=== PATIENT | male | born 1960 | race Caucasian/White ===

== ENCOUNTER 2021-05-25 05:32 | Emergency (ER) | payer OTHER ==
[2021-05-25 05:42] VITALS: BP 165/85; PULSE 111; RESP 22; TEMP 97.8
[2021-05-25] MEDS ORDERED: ONDANSETRON 4 MG/2 ML VIAL IVP STA (05:53)
[2021-05-25] MEDS ORDERED: HYDROmorphone 0.5 MG/0.5 ML SYRINGE IVP STA (05:53)
[2021-05-25 06:21] LABS: Basophils # (A) 0.1 k/uL (0-0.2); Basophils % (A) 1 %; Eosinophils # (A) 0.1 k/uL (0-0.7); Eosinophils % (A) 0 %; HCT 45.6 % (39.0-53.0); HGB 15.3 gm/dL (13.0-17.5); Lymphocytes # (A) 1.1 k/uL (1.0-4.8); Lymphocytes % (A) 10 %; MCH 30.3 pg (25.0-35.0); MCHC 33.4 g/dL (31.0-37.0); MCV 90.5 fL (80.0-100.0); Monocytes # (A) 0.4 k/uL (0-1.0); Monocytes % (A) 3 %; Neutrophils % (A) 85 %; Platelet Count 281 k/uL (150-450); RBC 5.04 m/uL (4.30-5.90); RDW 13.5 % (11.5-15.5); WBC 11.8 k/uL (3.8-10.6)
[2021-05-25 06:35] LABS: Appearance,Urine Clear (Clear); Bilirubin,Urine Negative (Negative); Blood,Urine Large (Negative); Color,Urine Yellow; Glucose,Urine (UA) Negative (Negative); Hyaline Casts,Urine 3 /lpf (0-2); Ketones,Urine 3+ (Negative); Leukocyte Esterase,Urine Negative (Negative); Mucus,Urine Occasional /hpf; Nitrite,Urine Negative (Negative); Protein,Urine Trace (Negative); RBC,Urine 14 /hpf (0-5); Specific Gravity,Urine 1.022 (1.001-1.035); Urobilinogen,Urine <2.0 mg/dL (<2.0); WBC,Urine 1 /hpf (0-5)
[2021-05-25 06:41] LABS: Albumin 4.2 g/dL (3.5-5.0); Calcium 9.3 mg/dL (8.4-10.2); Potassium 4.4 mmol/L (3.5-5.1); Total Bilirubin 0.6 mg/dL (0.2-1.3); Total Protein 7.5 g/dL (6.3-8.2)
[2021-05-25] MEDS ORDERED: HYDROmorphone 1 MG/ML 1 ML SYRINGE IVP STA (07:11)
--- NOTE | 2021-05-25 07:21 | ED ---
Abdominal Pain HPI - General Source: patient Mode of arrival: ambulatory Limitations: no limitations - History of Present Illness MD Complaint: flank pain Onset/Timin -: hour(s) Location: R flank Radiation: RLQ Migration to: no migration Severity: severe Quality: sharp Consistency: constant Improves With: nothing Worsens With: nothing Associated Symptoms: nausea, vomiting <Best Herndon - Last Filed: 05/25/21 07:23> <Vikas Fonseca - Last Filed: 05/26/21 14:48> - General Chief Complaint: Abdominal Pain Stated Complaint: poss kidney stone Time Seen by Provider: 05/25/21 05:48 - History of Present Illness Initial Comments: This patient is a 60-year-old man who presents with pain that he states is very similar to when he had previous kidney stone. Patient states that he started having some discomfort while he was trying to go to bed around 9 PM. He indicates the right flank. The pain does radiate toward the right groin. Some hours later he noted intensification and there was nausea and vomiting. When the pain did not improve he presented here for evaluation. (Best Herndon) - Related Data Home Medications Medication Instructions Recorded Confirmed Atorvastatin [Lipitor] 10 mg PO DAILY 05/25/21 05/25/21 Ibuprofen [Motrin] 800 mg PO BID PRN 05/25/21 05/25/21 Metoprolol Succinate (ER) [Toprol 50 mg PO DAILY 05/25/21 05/25/21 Xl] Multivit-Min/FA/Lycopen/Lutein 1 tab PO HS 05/25/21 05/25/21 [Centrum Silver Men Tablet] Sleep Aid Otc 25mg 25 mg PO HS 05/25/21 05/25/21 amLODIPine [Norvasc] 10 mg PO HS 05/25/21 05/25/21 Previous Rx's Medication Instructions Recorded HYDROcodone/APAP 5-325MG [[place] 1 tab PO Q4HR PRN 3 Days #18 tab 05/25/21 5-325] Ondansetron Odt [Zofran ODT] 4 mg PO Q8HR PRN #10 tab 05/25/21 Tamsulosin [Flomax] 0.4 mg PO DAILY #14 cap 05/25/21 Allergies Allergy/AdvReac Type Severity Reaction Status Date / Time No Known Allergies Allergy Verified 05/25/21 07:10 Review of Systems ROS Other: All systems not noted in ROS Statement are negative. Constitutional: Denies: fever, chills, weakness Respiratory: Denies: cough, dyspnea Cardiovascular: Denies: chest pain, palpitations, edema, syncope Gastrointestinal: Reports: as per HPI, abdominal pain, nausea, vomiting. Denies: diarrhea, constipation, melena, hematochezia Genitourinary: Denies: dysuria, frequency, hematuria, testicular pain, testicular mass Musculoskeletal: Denies: back pain Skin: Denies: rash Neurological: Denies: headache, weakness, numbness <KatrinaBest - Last Filed: 05/25/21 07:23> ROS Other: All systems not noted in ROS Statement are negative. <JoyadarenVikas - Last Filed: 05/26/21 14:48> ROS Statement: Those systems with pertinent positive or pertinent negative responses have been documented in the HPI. Past Medical History Past Medical History: Hyperlipidemia, Hypertension Additional Past Medical History / Comment(s): kidney stones History of Any Multi-Drug Resistant Organisms: None Reported Additional Past Surgical History / Comment(s): RIGHT AND LEFT SHOULDER, LEFT KNEE ARTHROSCOPIC, RIGHT KNEE X4 , RIGHT KNEE ARTHROTOMY, LEFT FOREARM Past Anesthesia/Blood Transfusion Reactions: No Reported Reaction Past Psychological History: No Psychological Hx Reported Smoking Status: Never smoker Past Alcohol Use History: Rare Past Drug Use History: None Reported - Past Family History Mother Family Medical History: No Reported History <KatrinaBest - Last Filed: 05/25/21 07:23> General Exam Limitations: no limitations General appearance: alert, in no apparent distress Head exam: Present: atraumatic, normocephalic Eye exam: Present: normal appearance. Absent: scleral icterus, conjunctival injection Respiratory exam: Present: normal lung sounds bilaterally. Absent: respiratory distress, wheezes, rales, rhonchi, stridor Cardiovascular Exam: Present: regular rate, normal rhythm, normal heart sounds. Absent: systolic murmur, diastolic murmur, rubs, gallop GI/Abdominal exam: Present: soft. Absent: distended, tenderness, guarding, rebound, rigid, mass Extremities exam: Present: normal inspection, normal capillary refill. Absent: pedal edema, calf tenderness Back exam: Present: normal inspection. Absent: CVA tenderness (R), CVA tenderness (L) Neurological exam: Present: alert Skin exam: Present: warm, dry, intact, normal color. Absent: rash <Best Herndon - Last Filed: 05/25/21 07:23> Course Vital Signs 05/25/21 05:38 Temperature 97.8 F Pulse Rate 111 H Respiratory 22 Rate Blood Pressure 165/85 O2 Sat by Pulse 97 Oximetry Medical Decision Making - Lab Data Result diagrams: 05/25/21 06:07 05/25/21 06:07 <Best Herndon - Last Filed: 05/25/21 07:23> - Lab Data Result diagrams: 05/25/21 06:07 05/25/21 06:07 <Vikas Fonseca - Last Filed: 05/26/21 14:48> - Medical Decision Making Patient's 60-year-old man with flank pain he states is similar to previous kidne y stone. Patient does have hematuria. Discussed computed tomography scan and at this point he feels is similar to previous that he would like to avoid the radiation exposure. (Best Herndon) - Lab Data Lab Results 05/25/21 05/25/21 05/25/21 Range/Units 06:07 06:07 06:07 WBC 11.8 H (3.8-10.6) k/uL RBC 5.04 (4.30-5.90) m/uL Hgb 15.3 (13.0-17.5) gm/dL Hct 45.6 (39.0-53.0) % MCV 90.5 (80.0-100.0) fL MCH 30.3 (25.0-35.0) pg MCHC 33.4 (31.0-37.0) g/dL RDW 13.5 (11.5-15.5) % Plt Count 281 (150-450) k/uL MPV 8.0 Neutrophils % 85 % Lymphocytes % 10 % Monocytes % 3 % Eosinophils % 0 % Basophils % 1 % Neutrophils # 10.0 H (1.3-7.7) k/uL Lymphocytes # 1.1 (1.0-4.8) k/uL Monocytes # 0.4 (0-1.0) k/uL Eosinophils # 0.1 (0-0.7) k/uL Basophils # 0.1 (0-0.2) k/uL Sodium 136 L (137-145) mmol/L Potassium 4.4 (3.5-5.1) mmol/L Chloride 105 (98-107) mmol/L Carbon Dioxide 18 L (22-30) mmol/L Anion Gap 13 mmol/L BUN 27 H (9-20) mg/dL Creatinine 1.15 (0.66-1.25) mg/dL Est GFR (CKD-EPI)AfAm 81 (>60 ml/min/1.73 sqM) Est GFR (CKD-EPI)NonAf 70 (>60 ml/min/1.73 sqM) Glucose 140 H (74-99) mg/dL Calcium 9.3 (8.4-10.2) mg/dL Total Bilirubin 0.6 (0.2-1.3) mg/dL AST 35 (17-59) U/L ALT 42 (4-49) U/L Alkaline Phosphatase 73 (38-126) U/L Total Protein 7.5 (6.3-8.2) g/dL Albumin 4.2 (3.5-5.0) g/dL Amylase 38 (30-110) U/L Lipase 21 L (23-300) U/L Urine Color Yellow Urine Appearance Clear (Clear) Urine pH 5.0 (5.0-8.0) Ur Specific [place] 1.022 (1.001-1.035) Urine Protein Trace H (Negative) Urine Glucose (UA) Negative (Negative) Urine Ketones 3+ H (Negative) Urine Blood Large H (Negative) Urine Nitrite Negative (Negative) Urine Bilirubin Negative (Negative) Urine Urobilinogen <2.0 (<2.0) mg/dL Ur Leukocyte Esterase Negative (Negative) Urine RBC 14 H (0-5) /hpf Urine WBC 1 (0-5) /hpf Hyaline Casts 3 H (0-2) /lpf Urine Mucus Occasional H (None) /hpf Disposition <Best Herndon - Last Filed: 05/25/21 07:23> Is patient prescribed a controlled substance at d/c from ED?: No <Vikas Fonseca - Last Filed: 05/26/21 14:48> Clinical Impression: Calculus of kidney Disposition: HOME SELF-CARE Condition: Good Prescriptions: Tamsulosin [Flomax] 0.4 mg PO DAILY #14 cap HYDROcodone/APAP 5-325MG [[place] 5-325] 1 tab PO Q4HR PRN 3 Days #18 tab PRN Reason: Pain Ondansetron Odt [Zofran ODT] 4 mg PO Q8HR PRN #10 tab PRN Reason: Nausea Referrals: Lyle Harris MD [Primary Care Provider] - 1-2 days Devyn Iglesias MD [STAFF PHYSICIAN] - 1-2 days
--- NOTE | 2021-05-25 12:07 | CT ---
EXAMINATION TYPE: CT abdomen pelvis wo con DATE OF EXAM: 05/25/2021 HISTORY: right flank pain CT DLP: 1887 mGycm. Automated Exposure Control for Dose Reduction was Utilized. TECHNIQUE: CT scan of the abdomen and pelvis is performed without oral or IV contrast. COMPARISON: NONE FINDINGS: Within the limitations of a non-contrast study, the following observations are made. LUNG BASES: No significant abnormality is appreciated. LIVER/GB: Visualized liver heterogeneously hypodense consistent with diffuse fatty infiltration. PANCREAS: Mild generalized fat replaced atrophy. SPLEEN: No significant abnormality is seen. ADRENALS: No significant abnormality is seen. KIDNEYS: 2 small left renal calculi measuring up to 2 mm in size mid to lower pole level coronal imag es 75 and 76. No left-sided hydronephrosis. Exophytic 1.7 cm thin-walled cysts laterally left kidney upper pole level axial image 53. Distal 3 mm right ureter calculus coronal image 82 causing mild right-sided hydronephrosis and modera te right-sided perinephric fat stranding. No additional right renal calculi. No intraluminal calculi in the poorly distended bladder. Adjacent pelvic phleboliths noted. BOWEL: Diverticula in the left and sigmoid colon. GENITAL ORGANS: No gross abnormality seen. LYMPH NODES: No greater than 1cm abdominal or pelvic lymph nodes are appreciated. Slightly prominent but subcentimeter mesenteric lymph nodes with mild haziness or fat stranding. Findings are nonspecifi c. OSSEOUS STRUCTURES: Moderate axial joint space loss right greater than left. Some facet arthropathy l ower lumbar levels. OTHER: No significant additional abnormality is seen. IMPRESSION: Mild right-sided hydronephrosis due to obstructing 3 mm distal right ureter calculus.
== END 2021-05-25 12:53 ==
LOC: EC 05:32
DX: N20.0 Calculus of kidney (principal); E78.5 Hyperlipidemia, unspecified; I10 Essential (primary) hypertension; Z79.899 Other long term (current) drug therapy
CPT/HCPCS: 36415; 80053; 82150; 83690; 85025; 81001; 74176; 99284; 96374; 96375; 96376; J2405; J1170 ×2

== ENCOUNTER → 2021-06-08 | Outpatient (CLI) | payer OTHER ==
--- NOTE | 2021-06-08 06:51 | XR ---
EXAMINATION TYPE: XR KUB DATE OF EXAM: 06/08/2021 6:36 AM CLINICAL HISTORY: History of kidney stones with right flank pain. TECHNIQUE: Single supine KUB image of the abdomen is obtained. COMPARISON: CT abdomen and pelvis 2 weeks ago FINDINGS: No definite nephrolithiasis though the 2 tiny left renal calculi on recent CT are likely to o small to distinctly visualize on plain film. Lower pelvic rounded densities consistent with phlebol iths. Likely stable 2 to 3 mm distal right ureter calculus in the pelvis at level of hip joint. Overall nonspecific favor nonobstructive bowel gas pattern. Visualized osseous structures are intact. IMPRESSION: As above.
== END | disposition home or self-care (01) ==
LOC: RADXRMAIN 06:08
PROVIDERS: ATTEND Urology
DX: R10.9 Unspecified abdominal pain (principal)
CPT/HCPCS: 74018

== ENCOUNTER 2022-05-21 15:20 | Emergency (ER) | payer OTHER ==
[2022-05-21] MEDS ORDERED: MAG HYDROX/AL HYDROX/SIMETH 30 ML, HYOSCYAMINE ELIXIR 10 ML, LIDOCAINE VISCOUS 2% 10 ML PO STA ×3 (16:14)
[2022-05-21] MEDS ORDERED: KETOROLAC 15 MG/ML 1 ML VIAL IVP STA (16:23)
[2022-05-21] MEDS ORDERED: SODIUM CHLORIDE 0.9% 1,000 ML IV STA (16:23)
[2022-05-21] MEDS ORDERED: ONDANSETRON 4 MG/2 ML VIAL IVP STA (16:23)
--- NOTE | 2022-05-21 16:26 | ED ---
General Adult HPI - General Chief complaint: Back Pain/Injury Stated complaint: kidney stones Time Seen by Provider: 05/21/22 15:32 Source: patient Mode of arrival: ambulatory Limitations: no limitations - History of Present Illness Initial comments: This is a pleasant 61-year-old male with a history of hyperlipidemia and hypertension. Patient also has a history of kidney stones. He presents today stating that he was woke up this morning at 3 AM with left flank pain. Described a sharp pain to his left flank. No alleviating or exacerbating factor s. Patient states he also has a sense of urinary urgency. No hematuria. 2 episodes of vomiting. Some nausea. No chest pain or shortness of breath. No fever or chills. States that the pain is constant. It waxes and wanes in intensity. No headache, no fever or chills, no changes in vision or hearing, no sore throat or difficulty with speech, no neck pain, no chest pain or shortness of breath, no changes in urination or bowel movements, no numbness or tingling, no extremity pain, no skin rashes or lesions. Past medical, surgical, social, and family history reviewed. - Related Data Home Medications Medication Instructions Recorded Confirmed Atorvastatin [Lipitor] 10 mg PO DAILY 05/25/21 05/25/21 Ibuprofen [Motrin] 800 mg PO BID PRN 05/25/21 05/25/21 Metoprolol Succinate (ER) [Toprol 50 mg PO DAILY 05/25/21 05/25/21 Xl] Multivit-Min/FA/Lycopen/Lutein 1 tab PO HS 05/25/21 05/25/21 [Centrum Silver Men Tablet] Sleep Aid Otc 25mg 25 mg PO HS 05/25/21 05/25/21 amLODIPine [Norvasc] 10 mg PO HS 05/25/21 05/25/21 Previous Rx's Medication Instructions Recorded HYDROcodone/APAP 5-325MG [[place] 1 tab PO Q4HR PRN 3 Days #18 tab 05/25/21 5-325] Ondansetron Odt [Zofran ODT] 4 mg PO Q8HR PRN #10 tab 05/25/21 Tamsulosin [Flomax] 0.4 mg PO DAILY #14 cap 05/25/21 HYDROcodone/APAP 5-325MG [[place] 1 tab PO Q6HR PRN 3 Days #12 tab 05/21/22 5-325] Naproxen [Naprosyn] 375 mg PO Q12HR PRN #20 tablet 05/21/22 Ondansetron Odt [Zofran Odt] 4 mg PO Q8H PRN #10 tab 05/21/22 Tamsulosin [Flomax] 0.4 mg PO DAILY #14 cap 05/21/22 Allergies Allergy/AdvReac Type Severity Reaction Status Date / Time No Known Allergies Allergy Verified 05/21/22 15:21 Review of Systems ROS Statement: Those systems with pertinent positive or pertinent negative responses have been documented in the HPI. ROS Other: All systems not noted in ROS Statement are negative. Past Medical History Past Medical History: Hyperlipidemia, Hypertension Additional Past Medical History / Comment(s): kidney stones History of Any Multi-Drug Resistant Organisms: None Reported Additional Past Surgical History / Comment(s): RIGHT AND LEFT SHOULDER, LEFT KNEE ARTHROSCOPIC, RIGHT KNEE X4 , RIGHT KNEE ARTHROTOMY, LEFT FOREARM Past Anesthesia/Blood Transfusion Reactions: No Reported Reaction Past Psychological History: No Psychological Hx Reported Smoking Status: Never smoker Past Alcohol Use History: Rare Past Drug Use History: None Reported - Past Family History Mother Family Medical History: No Reported History General Exam Limitations: no limitations General appearance: alert, in no apparent distress Head exam: Present: atraumatic, normocephalic, normal inspection Eye exam: Present: normal appearance, PERRL, EOMI. Absent: scleral icterus, conjunctival injection, periorbital swelling ENT exam: Present: normal exam, normal oropharynx, mucous membranes moist, normal external ear exam. Absent: mucous membranes dry Neck exam: Present: normal inspection, full ROM. Absent: tenderness, meningismus, lymphadenopathy Respiratory exam: Present: normal lung sounds bilaterally. Absent: respiratory distress, wheezes, rales, rhonchi, stridor Cardiovascular Exam: Present: regular rate, normal rhythm, normal heart sounds. Absent: systolic murmur, diastolic murmur, rubs, gallop, clicks GI/Abdominal exam: Present: soft, normal bowel sounds. Absent: distended, tenderness, guarding, rebound, rigid Extremities exam: Present: normal inspection, full ROM, normal capillary refill. Absent: tenderness, pedal edema, joint swelling, calf tenderness Back exam: Present: normal inspection, full ROM, CVA tenderness (L). Absent: CVA tenderness (R) Neurological exam: Present: alert, oriented X3, CN II-XII intact Psychiatric exam: Present: normal affect, normal mood Skin exam: Present: warm, dry, intact, normal color. Absent: rash Course Vital Signs 05/21/22 15:22 Temperature 98 F Pulse Rate 82 Respiratory 16 Rate Blood Pressure 169/87 O2 Sat by Pulse 96 Oximetry - Reevaluation(s) Reevaluation #1: 05/21/22 19:18 Medical record is reviewed Symptoms are improved here in the emergency department Patient is informed of results and questions answered Patient in no distress Medical Decision Making - Medical Decision Making Patient symptomology most consistent with nephrolithiasis. Less likely infectious process. Does not appear to be consistent with vascular disorder. Patient appears to be in no significant distress. Does not appear to be ill or toxic. Plan for reevaluation 3 mm distal left ureteral stone with minimal bump up and creatinine. Patient notified. Patient notified of the importance to follow-up with urology. Short course of [place] written. Flomax, low-dose Naprosyn, Zofran when necessary. Patient was told to return to the ER for any signs or symptoms worsen. Told to return immediately if any other problems arise. All questions answered. Treatment plan discussed. Patient in agreement Every effort has been made to ensure accuracy of this dictation. However, due to the limitations of electronic medical records and dictation devices, errors in charting still occur. [employer] Dr. Herndon - Lab Data Result diagrams: 05/21/22 17:07 05/21/22 17:07 Lab Results 05/21/22 05/21/22 05/21/22 Range/Units 17:07 17:07 18:43 WBC 12.9 H (3.8-10.6) k/uL RBC 5.16 (4.30-5.90) m/uL Hgb 14.8 (13.0-17.5) gm/dL Hct 45.4 (39.0-53.0) % MCV 88.0 (80.0-100.0) fL MCH 28.7 (25.0-35.0) pg MCHC 32.6 (31.0-37.0) g/dL RDW 13.3 (11.5-15.5) % Plt Count 309 (150-450) k/uL MPV 8.2 Neutrophils % 83 % Lymphocytes % 10 % Monocytes % 5 % Eosinophils % 1 % Basophils % 1 % Neutrophils # 10.6 H (1.3-7.7) k/uL Lymphocytes # 1.3 (1.0-4.8) k/uL Monocytes # 0.6 (0-1.0) k/uL Eosinophils # 0.1 (0-0.7) k/uL Basophils # 0.1 (0-0.2) k/uL Sodium 137 (137-145) mmol/L Potassium 4.4 (3.5-5.1) mmol/L Chloride 105 (98-107) mmol/L Carbon Dioxide 18 L (22-30) mmol/L Anion Gap 14 mmol/L BUN 23 H (9-20) mg/dL Creatinine 1.37 H (0.66-1.25) mg/dL Est GFR (CKD-EPI)AfAm 65 (>60 ml/min/1.73 sqM) Est GFR (CKD-EPI)NonAf 56 (>60 ml/min/1.73 sqM) Glucose 110 H (74-99) mg/dL Calcium 9.1 (8.4-10.2) mg/dL Total Bilirubin 0.4 (0.2-1.3) mg/dL AST 31 (17-59) U/L ALT 35 (4-49) U/L Alkaline Phosphatase 70 (38-126) U/L Total Protein 6.9 (6.3-8.2) g/dL Albumin 3.9 (3.5-5.0) g/dL Urine Color Yellow Urine Appearance Clear (Clear) Urine pH 5.5 (5.0-8.0) Ur Specific [place] 1.026 (1.001-1.035) Urine Protein Trace H (Negative) Urine Glucose (UA) Negative (Negative) Urine Ketones 1+ H (Negative) Urine Blood Negative (Negative) Urine Nitrite Negative (Negative) Urine Bilirubin Negative (Negative) Urine Urobilinogen <2.0 (<2.0) mg/dL Ur Leukocyte Esterase Negative (Negative) - Radiology Data Radiology results: report reviewed, image reviewed Disposition Clinical Impression: Ureterolithiasis, Renal colic on left side, Hydronephrosis, Elevated blood pressure reading, Renal insufficiency Disposition: HOME SELF-CARE Condition: Good Instructions (If sedation given, give patient instructions): Kidney Stones (ED), How to Strain Your Urine (ED) Additional Instructions: Follow-up with your regular physician as directed. Return to the ER immediately if any symptoms worsen, new symptoms arise, or any other problems develop. Prescriptions: Tamsulosin [Flomax] 0.4 mg PO DAILY #14 cap Naproxen [Naprosyn] 375 mg PO Q12HR PRN #20 tablet PRN Reason: Pain HYDROcodone/APAP 5-325MG [[place] 5-325] 1 tab PO Q6HR PRN 3 Days #12 tab PRN Reason: Pain Ondansetron Odt [Zofran Odt] 4 mg PO Q8H PRN #10 tab PRN Reason: Nausea Is patient prescribed a controlled substance at d/c from ED?: Yes When asked, does pt state using other controlled substances?: No If prescribed controlled substance>3 days was MAPS reviewed?: Prescribed <3 Days If opioid is for acute pain is fill amount 7 days or less?: Yes If Rx opioid, was Start Talking consent form obtained?: Yes Referrals: Carlos Manuel Mahoney MD [STAFF PHYSICIAN] - 05/24/22 Time of Disposition: 19:19
[2022-05-21 17:38] LABS: Basophils # (A) 0.1 k/uL (0-0.2); Basophils % (A) 1 %; Eosinophils # (A) 0.1 k/uL (0-0.7); Eosinophils % (A) 1 %; HCT 45.4 % (39.0-53.0); HGB 14.8 gm/dL (13.0-17.5); Lymphocytes # (A) 1.3 k/uL (1.0-4.8); Lymphocytes % (A) 10 %; MCH 28.7 pg (25.0-35.0); MCHC 32.6 g/dL (31.0-37.0); Mean Platelet Volume 8.2; Monocytes # (A) 0.6 k/uL (0-1.0); Monocytes % (A) 5 %; Neutrophils # (A) 10.6 k/uL (1.3-7.7); Neutrophils % (A) 83 %; Platelet Count 309 k/uL (150-450); RBC 5.16 m/uL (4.30-5.90); RDW 13.3 % (11.5-15.5); WBC 12.9 k/uL (3.8-10.6)
--- NOTE | 2022-05-21 17:38 | CT ---
EXAMINATION TYPE: CT abdomen pelvis wo con DATE OF EXAM: 05/21/2022 COMPARISON: 05/25/2021 HISTORY: left flank pain CT DLP: 1433.4 mGycm Automated exposure control for dose reduction was used. Images obtained from the diaphragm to the floor the pelvis without contrast. The lung bases are clear. No pleural effusion. Heart size is normal. No pericardial effusion. Liver spleen and stomach pancreas gallbladder appear intact. The bile ducts are not dilated. There is no adrenal mass. Kidneys have normal size. There is mild left-sided hydronephrosis and hydro ureter. There is obstructing 3 mm calculus distal left ureter. There is 2 mm calculus posterior left kidney. There is no retroperitoneal adenopathy. Urinary bladder distends smoothly. There are multiple sigmoid diverticula. No diverticulitis. There is 2 cm lateral left renal cortical cyst. There is no mesenteric edema. No ascites or free air. No sign of a bowel obstruction. Appendix is not seen. Lumbar spine is intact. No compression fracture. Bony pelvis is intact. The hip joints are intact. IMPRESSION: Small obstructing calculus distal left ureter with mild left-sided hydronephrosis and hydroureter. Ob struction is new compared to old exam. There is clearing of the right-sided renal obstruction compared to the old exam.
[2022-05-21 17:50] LABS: Albumin 3.9 g/dL (3.5-5.0); Calcium 9.1 mg/dL (8.4-10.2); Potassium 4.4 mmol/L (3.5-5.1); Total Bilirubin 0.4 mg/dL (0.2-1.3); Total Protein 6.9 g/dL (6.3-8.2)
[2022-05-21] MEDS ORDERED: TAMSULOSIN 0.4 MG CAP.ER.24H PO STA (17:53)
[2022-05-21] MEDS ORDERED: MORPHINE SULFATE 4 MG/ML SYRINGE IV STA (17:58)
[2022-05-21 19:15] LABS: Appearance,Urine Clear (Clear); Bilirubin,Urine Negative (Negative); Blood,Urine Negative (Negative); Color,Urine Yellow; Glucose,Urine (UA) Negative (Negative); Ketones,Urine 1+ (Negative); Leukocyte Esterase,Urine Negative (Negative); Nitrite,Urine Negative (Negative); PH, Urine 5.5 (5.0-8.0); Protein,Urine Trace (Negative); Specific Gravity,Urine 1.026 (1.001-1.035); Urobilinogen,Urine <2.0 mg/dL (<2.0)
[2022-05-21] MEDS ORDERED: ONDANSETRON 4 MG ODT STARTER PACK 2 TAB BTL PO STA (19:17)
[2022-05-21] MEDS ORDERED: ACET/COD 300 MG/30 MG STARTER PACK 6 TAB BTL PO STA (19:17)
[2022-05-21 20:05] VITALS: BP 158/77; PULSE 78; RESP 20; TEMP 98.3
== END 2022-05-21 20:04 | disposition home or self-care (01) ==
LOC: EC 15:20
DX: N13.2 Hydronephrosis with renal and ureteral calculous obstruction (principal); I10 Essential (primary) hypertension; E78.5 Hyperlipidemia, unspecified
CPT/HCPCS: 36415; 80053; 85025; 81003; 74176; 99284; 96374; 96375; 96361; J2270; J2405; J1885; S0119

== ENCOUNTER → 2022-06-06 | Outpatient (CLI) | payer OTHER ==
--- NOTE | 2022-06-06 09:04 | XR ---
EXAMINATION TYPE: XR KUB DATE OF EXAM: 06/06/2022 8:51 AM INDICATION: Patient age:Male; 61 years old; Reason for study: N20.1 calculus; . COMPARISON: Abdominal radiograph 06/08/2021, CT 05/21/2022 TECHNIQUE: One radiographic view of the abdomen was obtained. FINDINGS: The bowel gas pattern is nonspecific without dilated loops of small or large bowel. There i s no evidence for organomegaly or pneumoperitoneum. The osseous structures are intact. Multiple abena cific densities project over the pelvis are similar to prior on 06/08/2021 and favored represent pelv ic phleboliths. Fecal material and gas are demonstrated throughout the colon and rectum. IMPRESSION: There remains multiple, calcifications within the pelvis which findings are favored represent pelvic phleboliths. Prior obstructive calculus is not definitively visualized on this radiography. Consider follow-up CT renal stone protocol.
== END | disposition home or self-care (01) ==
LOC: RADXRMAIN 08:29
PROVIDERS: ATTEND Urology
DX: N20.1 Calculus of ureter (principal)
CPT/HCPCS: 74018

== ENCOUNTER → 2024-12-14 | Outpatient (CLI) | payer BC ==
[2024-12-14 13:32] LABS: HCT 43.3 % (39.6-50.0); HGB 14.5 g/dL (13.0-17.0); MCH 30.1 pg (27.0-32.0); MCHC 33.5 g/dL (32.0-37.0); Mean Platelet Volume 10.6 FL (9.5-12.2); NRBC Per 100 WBC 0 X 10*3/uL (0.00-0.01); Platelet Count 255 X 10*3/uL (140-440); RBC 4.81 X 10*6/uL (4.40-5.60); WBC 7.07 X 10*3/uL (4.50-10.00)
[2024-12-14 14:01] LABS: ALT 33 U/L (10-49); AST 20 U/L (14-35); Albumin 3.6 g/dL (3.8-4.9); Alkaline Phosphatase 59 U/L (41-126); Blood Urea Nitrogen 15.2 mg/dL (9.0-27.0); Calcium 8.5 mg/dL (8.7-10.3); Carbon Dioxide 22.5 mmol/L (21.6-31.8); Chloride 108 mmol/L (96-109); Chol/HDL Ratio 4.21 Ratio; Globulin 2.4 g/dL (1.6-3.3); Glucose 107 mg/dL (70-110); LDL Cholesterol,Calculated 107.1 mg/dL (0.0-131.0); Prostate Specific Antigen 1.92 ng/mL (0.000-4.500); Sodium 140 mmol/L (135-145); Total Bilirubin 0.5 mg/dL (0.3-1.2); VLDL Calculation 18.74 mg/dL (5.00-40.00)
== END | disposition home or self-care (01) ==
LOC: LABWHC1 08:02
PROVIDERS: ATTEND Family Medicine
DX: Z00.01 Encounter for general adult medical examination with abnormal findings (principal)
CPT/HCPCS: 36415; 80053; 80061; 84153; 85027